=== PATIENT | female | born 1940 | race Caucasian/White ===

== ENCOUNTER 2017-05-10 09:25 | Outpatient (CLI) | payer MEDICARE, OTHER ==
--- NOTE | 2017-05-15 16:08 | DEXA Report ---
DEXA: 05/10/2017 CLINICAL INDICATION: Postmenopausal. TECHNIQUE: Dual energy x-ray absorptiometry (DXA) was performed on a SCVNGR system. Regions measured are the AP spine, femoral neck, and, if needed, forearm. COMPARISON: None. In accordance with the International Society for Clinical Densitometry (ISCD) guidelines, data from previous exams may be reanalyzed using current recommendations and techniques. This is done to allow a more accurate basis for comparison with the current study. FINDINGS LUMBAR SPINE DATA: REGION BMD (g/cm/cm) T-SCORE Z-SCORE L1 0.836 -2.4 -0.8 L2 0.904 -2.5 -0.8 L3 1.096 -0.9 0.8 L4 1.218 0.1 1.8 TOTAL 1.011 -1.4 0.2 HIP DATA: REGION BMD (g/cm/cm) T-SCORE Z-SCORE Neck 0.888 -1.1 0.9 TOTAL 0.984 -0.2 1.6 NOTE: The femoral neck or total proximal femur, whichever is lowest, is used for classification. IMPRESSION THE WHO CLASSIFICATION BASED ON THE INTERNATIONAL REFERENCE STANDARD: OSTEOPENIA. FRACTURE RISK: INCREASED. RECOMMENDATION: Patients with diagnosis of osteoporosis or osteopenia should have regular bone mineral density assessment. For those eligible for Medicare, routine testing is allowed once every 2 years. Testing frequency can be increased for patients who have rapidly progressing disease or for those who are receiving medical therapy to restore bone mass. COMMENT: World Health Organization (WHO) definitions for osteoporosis and osteopenia: NORMAL BMD: T-score at -1.0 or higher, fracture risk is low. OSTEOPENIA BMD: T-score between -1.0 and -2.5, fracture risk is increased. OSTEOPOROSIS BMD: T-score at -2.5 or lower, fracture risk high. National Osteoporosis Foundation recommends: 1. Obtain adequate dietary calcium (at least 1200 mg per day) and vitamin D (400 -800 international units per day). 2. Participate, as appropriate, in regular weight bearing and muscle- strengthening exercise. 3. Avoid tobacco use and reduce alcohol and caffeine intake. 4. For more detailed information see the website at www.NOF.org. TD: 05/10/2017 19:38 [facility]
== END 2017-05-10 09:26 | disposition home or self-care (01) ==
LOC: DI 09:25
PROVIDERS: ATTEND Internal Medicine
DX: M85.89 Other specified disorders of bone density and structure, multiple sites (principal)
CPT/HCPCS: 77080

== ENCOUNTER 2017-08-26 15:45 | Outpatient (CLI) | payer MEDICARE, OTHER | END 2017-08-26 15:46 | disposition EMS.NT | LOC: EMS 15:45 | PROVIDERS: ATTEND Surgery | DX: Z04.1 Encounter for examination and observation following transport accident (principal); V89.2XXA Person injured in unspecified motor-vehicle accident, traffic, initial encounter; Y92.414 Local residential or business street as the place of occurrence of the external cause ==

== ENCOUNTER 2017-09-20 05:49 | Day surgery (SDC) | payer MEDICARE, OTHER ==
[2017-09-20] MEDS ORDERED: CYCLOPENTOLATE 1% OPHTH DROPS 2 ML ONE (06:34)
[2017-09-20] MEDS ORDERED: KETOROLAC 0.45% OPHTH DROPS ONE (06:34)
[2017-09-20] MEDS ORDERED: PHENYLEPHRINE 2.5% OPHTH 2 ML DROPS ONE (06:34)
[2017-09-20] MEDS ORDERED: PROPARACAINE 0.5% OPHTH DROPS 15 ML ONE ×2 (06:35→07:21)
[2017-09-20] MEDS ORDERED: PROPARACAINE 0.5% OPHTH DROPS 15 ML RIGHTEYE ONE (06:40)
[2017-09-20] MEDS ORDERED: PHENYLEPHRINE 2.5% OPHTH 2 ML DROPS RIGHTEYE ONE (06:40)
[2017-09-20] MEDS ORDERED: KETOROLAC 0.45% OPHTH DROPS RIGHTEYE ONE (06:40)
[2017-09-20] MEDS ORDERED: CYCLOPENTOLATE 1% OPHTH DROPS 2 ML RIGHTEYE ONE (06:40)
[2017-09-20] MEDS ORDERED: LACTATED RINGERS 500 ML IV ONE (06:50)
[2017-09-20] MEDS ORDERED: CARBACHOL 0.01% 1.5 ML VIAL IO ONE (07:19)
[2017-09-20] MEDS ORDERED: BRIMONIDINE 0.1% OPHTH DROPS 5 ML ONE (07:19)
[2017-09-20] MEDS ORDERED: TRIAMCINOLONE PF 40 MG/ML VIAL ONE (07:20)
[2017-09-20] MEDS ORDERED: TIMOLOL 0.5% OPHTH DROPS ONE ×2 (07:20→07:21)
[2017-09-20] MEDS ORDERED: BRIMONIDINE 0.2% OPHTH DROPS 5 ML ONE (07:22)
[2017-09-20] MEDS ORDERED: EPINEPHrine 1 MG/ML AMP ONE (07:28)
[2017-09-20] MEDS ORDERED: BRIMONIDINE 0.2% OPHTH DROPS 5 ML OPTH ONE (07:48)
[2017-09-20] MEDS ORDERED: EPINEPHrine 1 MG/ML AMP IVP ONE (07:48)
[2017-09-20] MEDS ORDERED: TIMOLOL 0.5% OPHTH DROPS OPTH ONE (07:48)
[2017-09-20] MEDS ORDERED: CHONDR SULF/HYALURONATE SYRINGE IO ONE (07:48)
[2017-09-20] MEDS ORDERED: TRIAMCIN/MOXIFLOX/VANCO 1 ML VIAL IO ONE (07:49)
[2017-09-20] MEDS ORDERED: PROPARACAINE 0.5% OPHTH DROPS 15 ML LEFTEYE ONE (07:49)
[2017-09-20] MEDS ORDERED: BSS/LIDOCAINE/EPINEPHRINE 1 ML SYRINGE IO ONE (07:49)
[2017-09-20 07:58] VITALS: BP 140/85
--- NOTE | 2017-09-20 08:18 | OPERATIVE REPORT ---
DATE OF SERVICE: 09/20/2017 Physician: Andrew Kumar MD PREOPERATIVE DIAGNOSIS: Visually significant cataract, right eye. This was her first cataract surgery. POSTOPERATIVE DIAGNOSIS: Visually significant cataract, right eye. This was her first cataract surgery. NAME OF PROCEDURE: Phacoemulsification with posterior chamber intraocular lens implant, right eye. SURGEON: Andrew Kumar MD ANESTHESIA: Monitored anesthesia care. COMPLICATIONS: None. OPERATIVE INDICATIONS: This is a 77-year-old woman with progressive vision loss in the right eye due to 2+ nuclear sclerotic and 2+ cortical cataract. Best corrected visual acuity was 20/20 with glare to 20/100 in the right eye. Indications for surgery were overall decrease in vision, difficulty seeing words on a computer screen; difficulty seeing words, closed captions or game scores on TV; difficulty seeing street signs, difficulty driving in low light or at night, difficulty driving at night because of headlights from other vehicles, and difficulty with glare or bright lights in any situation. She was consented at length concerning risks and benefits of cataract surgery, after which she expressed a desire to proceed with surgery. OPERATIVE PROCEDURE: Patient was taken into OR #3 and placed under monitored anesthesia care. A surgical timeout was conducted confirming correct patient, correct procedure, and correct surgical site. She was given topical anesthesia, then prepped and draped in the usual sterile fashion. The eye was entered at the 12 and 9 o'clock positions. Intracameral Shugarcaine was injected into the anterior chamber, followed by Viscoat. A continuous-tear curvilinear capsulorrhexis was performed. The nucleus was hydrodissected and phacoemulsified. The cortex was evacuated using automated infusion and aspiration. Provisc was injected in the capsular bag, and a 12.0 diopter intraocular lens was inserted into the bag. Approximately 0.7 mL of a mixture of triamcinolone and moxifloxacin was injected subconjunctivally in the superior quadrant for infection and inflammation prophylaxis. I and A was used to evacuate the viscoelastic materials. The eye was inflated to physiologic pressure using a balanced salt solution and found to be watertight. Patient was taken from the operating room in good condition and given postoperative instructions. TD: 09/20/2017 08:17
[2017-09-20] MEDS ORDERED: MIDAZOLAM 2 MG/2 ML VIAL IVP ONE (10:48)
== END 2017-09-20 05:50 | disposition home or self-care (01) ==
LOC: SDS 05:49
PROVIDERS: ATTEND Ophthalmology
PROC: 08RJ3JZ Replacement of Right Lens with Synthetic Substitute, Percutaneous Approach (ICD-10-PCS; principal; 2017-09-20 07:30)
DX: H25.811 Combined forms of age-related cataract, right eye (principal); E11.9 Type 2 diabetes mellitus without complications
CPT/HCPCS: 66984; A9270; J3490; V2632

== ENCOUNTER 2017-11-22 06:14 | Day surgery (SDC) | payer MEDICARE, OTHER ==
[2017-11-22] MEDS ORDERED: KETOROLAC 0.45% OPHTH DROPS ONE (06:36)
[2017-11-22] MEDS ORDERED: CYCLOPENTOLATE 1% OPHTH DROPS 2 ML ONE (06:36)
[2017-11-22] MEDS ORDERED: PHENYLEPHRINE 2.5% OPHTH 2 ML DROPS ONE (06:36)
[2017-11-22] MEDS ORDERED: PROPARACAINE 0.5% OPHTH DROPS 15 ML ONE (06:37)
[2017-11-22] MEDS: KETOROLAC 0.45% OPHTH DROPS LEFTEYE ONE (06:43)
[2017-11-22] MEDS: CYCLOPENTOLATE 1% OPHTH DROPS 2 ML LEFTEYE ONE (06:43)
[2017-11-22] MEDS: PHENYLEPHRINE 2.5% OPHTH 2 ML DROPS LEFTEYE ONE (06:43)
[2017-11-22] MEDS: PROPARACAINE 0.5% OPHTH DROPS 15 ML LEFTEYE ONE ×2 (06:43→07:21)
[2017-11-22] MEDS: LACTATED RINGERS 500 ML IV ONE (06:47)
[2017-11-22] MEDS ORDERED: BSS/LIDOCAINE/EPINEPHRINE 1 ML SYRINGE ONE (07:07)
[2017-11-22] MEDS ORDERED: TRIAMCIN/MOXIFLOX OPHTHALMIC 0.6 ML VIAL IO ONE (07:07)
[2017-11-22] MEDS ORDERED: TIMOLOL 0.5% OPHTH DROPS ONE (07:07)
[2017-11-22] MEDS ORDERED: VANCOMYCIN OPHTHALMI 8MG/0.8ML 8 MG/0.8 ML SYRINGE IO ONE (07:07)
[2017-11-22] MEDS ORDERED: EPINEPHrine 1 MG/ML AMP ONE (07:07)
[2017-11-22] MEDS ORDERED: BRIMONIDINE 0.2% OPHTH DROPS 5 ML ONE (07:07)
[2017-11-22] MEDS: BRIMONIDINE 0.2% OPHTH DROPS 5 ML OPTH ONE (07:27)
[2017-11-22] MEDS: EPINEPHrine 1 MG/ML AMP IVP ONE (07:29)
[2017-11-22] MEDS: BSS/LIDOCAINE/EPINEPHRINE 1 ML SYRINGE IO ONE ×2 (07:29)
[2017-11-22] MEDS: TIMOLOL 0.5% OPHTH DROPS OPTH ONE (07:29)
[2017-11-22] MEDS: CHONDR SULF/HYALURONATE SYRINGE IO ONE (07:29)
[2017-11-22] MEDS: TRIAMCIN/MOXIFLOX/VANCO 1 ML VIAL IO ONE ×2 (07:30)
[2017-11-22] MEDS ORDERED: MIDAZOLAM 2 MG/2 ML VIAL IVP ONE (07:30)
[2017-11-22 07:45] VITALS: BP 156/64
--- NOTE | 2017-11-22 09:33 | OPERATIVE REPORT ---
DATE OF SERVICE: 11/22/2017 Physician: Andrew Kumar MD PREOPERATIVE DIAGNOSIS: Visually significant cataract, left eye. Cataract surgery was performed on the right eye on 09/20/2017. POSTOPERATIVE DIAGNOSIS: Visually significant cataract, left eye. Cataract surgery was performed on the right eye on 09/20/2017. PROCEDURE: Phacoemulsification with posterior chamber intraocular lens implant, left eye. SURGEON: Andrew Kumar M.D. ANESTHESIA: Monitored anesthesia care. COMPLICATIONS: None. OPERATIVE INDICATIONS: This is a 77-year-old woman with progressive vision loss in the left eye due to 2+ nuclear sclerotic, and 1+ cortical cataract. Best corrected visual acuity was 20/25 with count fingers at 7 feet, glare in the left eye. She was consented at length concerning risks and benefits of cataract surgery, after which she expressed a desire to proceed for surgery. INDICATIONS FOR SURGERY: Difficulty seeing words, closed captions, games scores on TV, difficulty driving at night because of head lights from other vehicles, and difficulty with glare or bright lights in any situation. OPERATIVE PROCEDURE: The patient was taken into OR #3 and placed under monitored anesthesia care. A surgical timeout was conducted confirming correct patient, correct procedure, and correct surgical site. She was given topical anesthesia, and prepped and draped in usual sterile fashion. The eye was entered at the 6 and 3 o'clock positions. Intracameral Shugarcaine was injected into the anterior chamber, followed by Viscoat. A continuous-tear curvilinear capsulorrhexis was performed. The nucleus was hydrodissected and phacoemulsified. The cortex was evacuated using automated infusion aspiration. Provisc was injected in the capsular bag, and an 11.5 diopter intraocular lens was inserted into the bag. Approximately 0.7 mL of a mixture of triamcinolone, moxifloxacin and vancomycin was injected subconjunctivally in the superior quadrant for infection and inflammation prophylaxis. I and A was used to evacuate the viscoelastic material. The eye was inflated to physiologic pressure using balanced salt solution, and found to be watertight. The patient was taken from the operating room in good condition, given postop instructions. TD: 11/22/2017 08:03
== END 2017-11-22 06:15 | disposition home or self-care (01) ==
LOC: SDS 06:14
PROVIDERS: ATTEND Ophthalmology
PROC: 08RK3JZ Replacement of Left Lens with Synthetic Substitute, Percutaneous Approach (ICD-10-PCS; principal; 2017-11-22 07:30)
DX: H25.812 Combined forms of age-related cataract, left eye (principal); E11.9 Type 2 diabetes mellitus without complications
CPT/HCPCS: 66984; A9270; J3490; V2632

== ENCOUNTER 2021-11-09 10:24 | Emergency (ER) | payer MEDICARE, OTHER ==
[2021-11-09 10:36] VITALS: BP 182/59
--- NOTE | 2021-11-09 11:36 | ED Physician Documentation ---
History of Present Illness - Stated complaint Stated Complaint: LEFT LEG BUG BITE - Chief complaint Chief Complaint: Ext Problem - Additonal information Additional information: 81-year-old female who does report a history of fairly well-controlled diabetes presents the emergency department for concerns of worsening infection on the left lower leg. She reports that she developed a bug bite about 1 week ago. She developed progressive swelling erythema and some mild ecchymosis. [place] clindamycin. She began taking it but feels that the infection has not improved thus she presents here. She is scheduled to see her PCP tomorrow. She denies any fevers nausea or vomiting. 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 There is some surrounding ecchymosis. Brief bedside ultrasound does not reveal a collection of fluid or abscess development.) - Neuro Neuro: Alert and Oriented X 3, CNII-XII intact - GCS Eye Opening: Spontaneous Motor: Obeys Commands Verbal: Oriented Total: 15 Results - Vitals Vitals: Vital Signs - 24 hr 11/09/21 10:34 Temperature 37.0 C Heart Rate 68 Respiratory 20 Rate Blood Pressure 182/59 H O2 Saturation 98 Oxygen O2 Source Room air PD MEDICAL DECISION MAKING - ED course Complexity details: considered differential, d/w patient ED course: Well-appearing 81-year-old female presents emergency department for evaluation of left lower leg cellulitis. Began as a bug bite about 1 week ago. [place] started [place] clindamycin. She has been on this for less than 24 hours. She feels that the redness has worsened despite the clindamycin. A brief bedside ultrasound did not reveal a pocket of fluid or abscess formation. Given her otherwise well appearance and lack of fevers I feel that she may benefit from a little more time on the clindamycin before we declare antibiotic failure. Patient is scheduled to see her PCP tomorrow in follow-up. The wound has been outlined. Patient is comfortable with this plan emergent return precautions otherwise discussed Departure - Departure Disposition: Home, Self Care Clinical Impression: Cellulitis of left lower leg Condition: Stable Record reviewed to determine appropriate education?: Yes Comments: You are seen today in the emergency department because of concerns of worsening infection in the left lower leg. We did do a brief bedside ultrasound and did not find that there has been any abscess formation. You have been on the clindamycin for only about 1 day. This is typically an appropriate antibiotic to treat the infection and I would like you to give it an additional 48 to 72 hours before we declare antibiotic failure. I do recommend that you place a warm compress on this leg for 10 minutes 3 times a day. Continue to follow-up with your primary care provider tomorrow. If despite the antibiotics you develop any sooner fevers, have worsening redness, pain or red streaking then please return to the ER for a second evaluation
== END 2021-11-09 11:45 | disposition home or self-care (01) ==
LOC: ED 10:24
DX: L03.116 Cellulitis of left lower limb (principal); E10.9 Type 1 diabetes mellitus without complications
CPT/HCPCS: 99281; 99284

== ENCOUNTER 2022-05-09 13:53 | Outpatient (CLI) | payer MEDICARE, OTHER ==
--- NOTE | 2022-05-09 21:12 | MRI Report ---
PROCEDURE: PELVIS WO INDICATIONS: SCAROCOCCYGEAL DISORDER TECHNIQUE: Noncontrast coronal T1 spin echo and STIR through the bony pelvis. Sagittal T2 FSE with fat saturati on, oblique axial PD FSE and T2 FSE with fat saturation through the symphysis pubis. COMPARISON: None. FINDINGS: Image quality: Excellent. 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 Subcortical cystic the areas involving right sacrum adjacent to sa croiliac joint with adjacent edema is seen. Similar subcortical cystic area involving more inferior r ight iliac bone adjacent to sacroiliac joint with adjacent edema is also noted. No edema is seen júnior cent to left sacroiliac joint. No bony erosive changes. Soft tissues: No gross muscle or tendon signal abnormalities. Bilateral common hamstring tendon origi ns at ischial tuberosity are grossly intact. There is no precervical soft tissue edema or fluid. No f ree pelvic fluid. Bladder wall thickness is normal. Genitourinary structures and bowel loops appear normal where visualized. IMPRESSION: 1. 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 No erosion is noted in left sacroiliac joint. No ankylosis. 2. No fracture or dislocation is seen and bony pelvis. 3. No gross pelvic soft tissue abnormalities. Reviewed by: Noel Potts MD on 05/09/2022 9:10 PM PST Approved by: Noel Potts MD on 05/09/2022 9:10 PM PST Station ID: [id number]
== END 2022-05-09 13:54 | disposition home or self-care (01) ==
LOC: DI 13:53
PROVIDERS: ATTEND Student in an Organized Health Care Education/Training Program
DX: M53.3 Sacrococcygeal disorders, not elsewhere classified (principal)